=== PATIENT | male | born 1990 | race Caucasian/White ===

== ENCOUNTER 2017-10-03 20:53 | Emergency (ER) | payer OTHER ==
[2017-10-03] MEDS ORDERED: NALOXONE HCL 0.4 MG/ML INJ ONE (20:56)
[2017-10-03] MEDS ORDERED: D50W 25 GM/50 ML SYR IVP ONE ×2 (20:57→21:02)
[2017-10-03] MEDS ORDERED: NS 1,000 ML IV ONE (21:02)
[2017-10-03] MEDS ORDERED: D5W NS 1,000 ML IV ONE (21:03)
[2017-10-03 21:07] LABS: PLATELET COUNT 319 10^3/uL (150-400)
[2017-10-03 21:28] VITALS: TEMP 97.9
--- NOTE | 2017-10-03 21:32 | EDPHY ---
H & P Smoking Status: Never smoked HPI/ROS: Chief complaint. Altered mental status HPI. 27-year-old male is brought to the emergency department by a co-worker with complaint that the patient quit responding while they were driving in the car. He drove to the nearest medical facility which was here at [facility]. The only thing the co-worker nose is that the patient is apparently diabetic and has had an insulin pump. The he does tell me that the patient told him that he did not feel well today. The patient arrives unresponsive to verbal or painful stimuli. The both arms are clenched in flexion and rigid. Pupils are mid dilated but not responding. The patient does not respond. He is very diaphoretic ROS --unable secondary to patient's altered mental status. Above history is all we know at the beginning of the encounter (Hamlet Woody) Past Medical/Surgical History: Subsequently history is obtained from the patient and his mother comes later to the emergency department. They relate long-standing insulin double dependent diabetes history. Recently the patient has had to go off his mother's insurance plan and go on to the company insurance plan. They have not been able to get coverage for insulin the goes in the patient's. He has been using injections of insulin to control his blood sugar. (Hamlet Woody) Social History: Single, nonsmoker, no alcohol (Hamlet Woody) Physical Exam: General Appearance: Unconscious well-developed male who is breathing and is diaphoretic. Eyes: Pupils midpoint but not reactive. ENT, Mouth: Mucous membranes are moist. Respiratory: There are no retractions, lungs are clear to auscultation. Cardiovascular: Regular rate and rhythm. Gastrointestinal: Abdomen is soft without masses Neurological: Unconscious and not responsive to verbal or painful stimuli Skin: Diaphoretic Musculoskeletal: No obvious injuries Extremities arms are held in rigid flexion contraction Psychiatric: Not responsive (Hamlet Woody) Constitutional: Initial Vital Signs Heart Rate 86 10/03/17 21:09 Respiratory Rate 20 10/03/17 21:09 Blood Pressure 116/68 10/03/17 21:09 O2 Sat (%) 100 10/03/17 21:09 O2 Delivery Mode Room Air Allergies/Adverse Reactions: Penicillins Allergy (Verified 10/03/17 21:08) Home Medications: Medication Instructions Recorded Lantus 100 UNITS/ML (RX) 03/25/14 Novolog Flexpen 03/25/14 Medical Decision Making Procedures: IV is placed and patient is placed on a monitor. Vital signs are found to be stable. Blood is sent for i-STAT. Prior to our i-STAT results patient is given D50 W intravenously with good return of responsiveness. Subsequently the i-STAT blood sugars found to be less than 20. Patient is subsequently given about 500 mL of D5 normal saline. However as the patient becomes responsive he is now able to speak. He is given some juice and peanut butter which he is eating. The D5 normal saline is switched to normal saline. Mother comes to the emergency department and gives further history the diabetes and problems with getting insulin for the insulin pump (Hamlet Woody) ED Course/Re-evaluation: On serial evaluations the patient is eating and drinking. Alert and talking. Neurologically intact. Official blood sugar is 18 from the lab 9:38 p.m. blood sugar is 88. Patient is otherwise stable Patient now tells me he took 10 U of Lantus this morning and up approximately 14 or 15 U of NovoLog with dinner at about 5:00 p.m. 10:25 p.m. blood sugar is 62. Patient is given more food. (Hamlet Woody) Differential Diagnosis: I considered hyperglycemia, hypoglycemia, substance abuse and ingestion. ( Hamlet Woody) Other Provider: Patient continued to feel well, be interactive and alert with no further symptoms of hypoglycemia. A blood sugar was rechecked at approximately 2325 p.m. and was 89 and then again repeated at midnight and was 192. At this point he was discharged to home with the recommendation to check his blood sugar again in 2 hr, and to treat accordingly. He understands that the half-life of NovoLog is approximately 8 hr and may stay in his system as long as 15-18 hours. (Angelica Martins) Care Turn Over: Dr. Martins at 2300 (Hamlet Woody) - Data Points Laboratory Results: Laboratory Results 10/03/17 20:50 10/03/17 20:50 10/03/17 10/03/17 10/03/17 23:58 23:14 22:16 WBC RBC Hgb POC Hgb Hct POC Hct MCV MCH MCHC RDW Plt Count MPV Neut % (Auto) Lymph % (Auto) [place] % (Auto) Eos % (Auto) Baso % (Auto) Nucleat RBC Rel Count Absolute Neuts (auto) Absolute Lymphs (auto) Absolute Monos (auto) Absolute Eos (auto) Absolute Basos (auto) Absolute Nucleated RBC Immature Gran % Immature Gran # POC Sodium Sodium POC Potassium Potassium POC Chloride Chloride Carbon Dioxide Anion Gap POC BUN BUN Creatinine POC Creatinine Estimated GFR Glucose POC Glucose 192 mg/dL H mg/dL 89 mg/dL mg/dL 62 mg/dL L mg/dL (70-100) (70-100) (70-100) Calcium Phosphorus Magnesium Beta-Hydroxybutyrate 10/03/17 10/03/17 10/03/17 21:28 20:55 20:50 WBC RBC Hgb POC Hgb 15.6 gm/dL gm/dL (13.7-17.5) Hct POC Hct 46 % % (40-51) MCV MCH MCHC RDW Plt Count MPV Neut % (Auto) Lymph % (Auto) [place] % (Auto) Eos % (Auto) Baso % (Auto) Nucleat RBC Rel Count Absolute Neuts (auto) Absolute Lymphs (auto) Absolute Monos (auto) Absolute Eos (auto) Absolute Basos (auto) Absolute Nucleated RBC Immature Gran % Immature Gran # POC Sodium 142 mEq/L mEq/L (135-145) Sodium POC Potassium 3.4 mEq/L mEq/L (3.3-5.0) Potassium POC Chloride 104 mEq/L mEq/L (97-110) Chloride Carbon Dioxide Anion Gap POC BUN 17 mg/dL mg/dL (7-23) BUN Creatinine POC Creatinine 0.8 mg/dL mg/dL (0.7-1.3) Estimated GFR Glucose POC Glucose 88 mg/dL mg/dL < 20 mg/dL L* mg/dL < 20 mg/dL L* mg/dL (70-100) (70-100) (70-100) Calcium Phosphorus Magnesium Beta-Hydroxybutyrate 10/03/17 10/03/17 20:50 20:50 WBC 8.90 10^3/uL 10^3/uL (3.80-9.50) RBC 4.72 10^6/uL 10^6/uL (4.40-6.38) Hgb 15.0 g/dL g/dL (13.7-17.5) POC Hgb Hct 43.8 % % (40.0-51.0) POC Hct MCV 92.8 fL fL (81.5-99.8) MCH 31.8 pg pg (27.9-34.1) MCHC 34.2 g/dL g/dL (32.4-36.7) RDW 12.9 % % (11.5-15.2) Plt Count 319 10^3/uL 10^3/uL (150-400) MPV 9.0 fL fL (8.7-11.7) Neut % (Auto) 55.2 % % (39.3-74.2) Lymph % (Auto) 34.0 % % (15.0-45.0) [place] % (Auto) 8.9 % % (4.5-13.0) Eos % (Auto) 1.1 % % (0.6-7.6) Baso % (Auto) 0.6 % % (0.3-1.7) Nucleat RBC Rel Count 0.0 % % (0.0-0.2) Absolute Neuts (auto) 4.91 10^3/uL 10^3/uL (1.70-6.50) Absolute Lymphs (auto) 3.03 10^3/uL H 10^3/uL (1.00-3.00) Absolute Monos (auto) 0.79 10^3/uL 10^3/uL (0.30-0.80) Absolute Eos (auto) 0.10 10^3/uL 10^3/uL (0.03-0.40) Absolute Basos (auto) 0.05 10^3/uL 10^3/uL (0.02-0.10) Absolute Nucleated RBC 0.00 10^3/uL 10^3/uL (0-0.01) Immature Gran % 0.2 % % (0.0-1.1) Immature Gran # 0.02 10^3/uL 10^3/uL (0.00-0.10) POC Sodium Sodium 141 mEq/L mEq/L (135-145) POC Potassium Potassium 3.3 mEq/L L mEq/L (3.5-5.2) POC Chloride Chloride 101 mEq/L mEq/L (97-110) Carbon Dioxide 26 mEq/l mEq/l (22-31) Anion Gap 14 mEq/L mEq/L (8-16) POC BUN BUN 15 mg/dL mg/dL (7-23) Creatinine 0.8 mg/dL mg/dL (0.7-1.3) POC Creatinine Estimated GFR > 60 Glucose < 20 mg/dL L* mg/dL (70-100) POC Glucose Calcium 9.5 mg/dL mg/dL (8.5-10.4) Phosphorus 3.9 mg/dL mg/dL (2.5-4.5) Magnesium 2.2 mg/dL mg/dL (1.6-2.3) Beta-Hydroxybutyrate 0.15 mmol/L mmol/L (0.02-0.27) Medications Given: Discontinued Medications Dextrose (Dextrose 50% Syringe) 25 gm IVP EDNOW ONE Stop: 10/03/17 21:03 Last Admin: 10/03/17 20:59 Dose: 25 gm Sodium Chloride (Ns) 1,000 mls @ 0 mls/hr IV ONCE ONE; Wide Open PRN Reason: Protocol Stop: 10/03/17 21:03 Last Admin: 10/03/17 20:55 Dose: 1,000 mls Dextrose/Sodium Chloride (D5w Ns) 1,000 mls @ 0 mls/hr IV EDNOW ONE; Wide Open PRN Reason: Protocol Stop: 10/03/17 21:04 Last Admin: 10/03/17 21:06 Dose: 1,000 mls Point of Care Test Results: 10/03/17 10/03/17 10/03/17 20:50 20:55 21:28 POC Sodium 142 POC Potassium 3.4 POC Chloride 104 POC BUN 17 POC Creatinine 0.8 POC Glucose < 20 L* < 20 L* 88 10/03/17 10/03/17 10/03/17 22:16 23:14 23:58 POC Sodium POC Potassium POC Chloride POC BUN POC Creatinine POC Glucose 62 L 89 192 H Departure - Departure Disposition: Home, Routine, Self-Care Clinical Impression: Hypoglycemia due to insulin Condition: Good Instructions: Hypoglycemia in a Person with Diabetes (ED) Additional Instructions: Check your sugars tonight each hour until you go to bed. Do not take any more insulin tonight. The amount of insulin you had today was too much and so consider half to 3/4 of today's dose when you give you self insulin tomorrow. Follow-up with [facility] in [place] for help with insulin for your pump Recheck with your regular physician who prescribes the insulin in the next 1-2 days Referrals: NONE *PRIMARY CARE P,. [Primary Care Provider] - As per Instructions
[2017-10-03 21:37] VITALS: RESP 16
[2017-10-04 00:11] VITALS: BP 124/80; PULSE 87; O2SAT 97
== END 2017-10-04 00:21 | disposition home or self-care (01) ==
LOC: CED 20:53
DX: E11.649 Type 2 diabetes mellitus with hypoglycemia without coma (principal); E86.9 Volume depletion, unspecified; Z79.4 Long term (current) use of insulin
CPT/HCPCS: 80048-PO; 82947-QW; 83735-PO; 84100-PO; 85025-PO; 96374; J2310